=== PATIENT | female | born 1950 | race Caucasian/White ===

== ENCOUNTER 2024-10-07 11:06 | Day surgery (SDC) | payer MEDICARE, BC, SELFPAY ==
[2024-10-07 11:59] VITALS: BMI 24.4
[2024-10-07 12:01] LABS: POC Glucose,Bedside 211 (70-110)
[2024-10-07] MEDS: LACTATED RINGERS 1000ML 1,000 ML 50 ML IV (12:01)
[2024-10-07 12:10] VITALS: BP 130/64; PULSE 66; RESP 18; TEMP 36.7; O2SAT 96
--- NOTE | 2024-10-07 12:20 | P.PNANES_ITS ---
[facility] Disclaimer: The information contained in this section may have been updated after the patient was seen, as this information can be updated by other users. 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, managed as type 2 Surgical History H/O section Family History (Updated 10/07/24 @ 12:09 by Jovani Tinsley RN) Other Family history of Alzheimer disease Social History (Updated 10/07/24 @ 12:10 by Jvoani Tinsley RN) Smoking Status: Never smoker alcohol intake: never substance use type: denies use current occupational status: retired Travel in the last 8 weeks?: None [facility] Anesthesia Checklist Patient Identification Patient Identification: Arm Band Structural Data Admitted From: Home Planned Operative Procedure/s: Colonoscopy Consent for Planned Operative Procedure(s) Verified: Yes Verified Documents: Surgical Consent and History and Physical NPO Status Verified Time NPO: 11:00 (sprite) Additional verifications Anesthesia Reactions: No Airway Assessment Mallampati Score:: Class II C-Spine Mobility Assessed: Yes TMJ Mobility Assessed: Yes Dentition: Good Dentition Neurological Assessment Level of Consciousness: Awake, Alert and Appropriate Anesthesia Plan Anesthesia Risk discussed: Yes Anesthesia Plan: Verified ASA Class: II Anesthesia Type: MAC
--- NOTE | 2024-10-07 13:01 | EXP.HP ---
History of Present Illness *Admission Date: 10/07/24 *Reason for visit:: Personal history of colon polyps *History of present illness: Mrs. Del Cid is a 74-year-old female who is here for screening colonoscopy. She does have a personal history of colon polyps. She had inadequate prep on colonoscopy in December 2023 and I believe that this was done at the [facility] because there is no record. The examination is deemed medically necessary for screening colonoscopy. The patient has been seen, interviewed and examined prior to the procedure by both myself and the anesthesia provider. [facility] Disclaimer: The information contained in this section may have been updated after the patient was seen, as this information can be updated by other users. Medical History (Updated 10/07/24 @ 13:11 by Antoine Arana II, MD) Hypothyroid Diabetes 1.5, managed as type 2 Surgical History H/O section Family History (Updated 10/07/24 @ 12:09 by Jovani Tinsley RN) Other Family history of Alzheimer disease Social History (Updated 10/07/24 @ 12:21 by Colin Brown CRNA) Smoking Status: Never smoker alcohol intake: never substance use type: denies use current occupational status: retired Travel in the last 8 weeks?: None Have you lived/traveled outside [place] in past 30 days?: No Contact w/someone who lives/traveled outside US past 30 days?: No Exposure to someone with infectious disease in past 14 days?: No Do you have a fever (greater than 100.4 F or 38 C)?: No Have you tested positive for COVID-19?: No Exposed to someone with COVID-19 in past 14 days?: No Do you have a sore throat?: No Do you have a cough?: No Do you have any weakness?: No Are you experiencing any nausea/vomitting?: No Do you have any diarrhea?: No Are you experiencing any unusual bleeding?: No Do you have any muscle aches/pain?: No Do you have any abdominal pain?: No Are you experiencing loss of taste or smell?: No Other Medical History Have you received the Pneumonia Vaccine: No Review of Systems Review of Systems Review of systems (narrative): Negative *Cardiovascular Comments: Negative *Gastrointestinal Comments: Negative *Genitourinary Comments: Negative *Musculoskeletal Comments: Negative *Neurologic Comments: Negative Meds Home Medications and Allergies Home Medications ?Medication ?Instructions ?Recorded ?Confirmed ?Type levothyroxine 100 mcg tablet 100 mcg PO DAILY 09/28/24 09/28/24 History aripiprazole 10 mg tablet (Abilify) 10 mg PO DAILY 10/07/24 10/07/24 History atorvastatin 40 mg tablet 40 mg PO DAILY 10/07/24 10/07/24 History bupropion HCl 300 mg 24 hr tablet, 300 mg PO DAILY 10/07/24 10/07/24 History extended release (Wellbutrin XL) cholecalciferol (vitamin D3) 50 50 mcg PO DAILY 10/07/24 10/07/24 History mcg (2,000 unit) capsule (Vitamin D3) donepezil 10 mg tablet (Aricept) 10 mg PO DAILY 10/07/24 10/07/24 History fenofibrate 54 mg tablet 54 mg PO DAILY 10/07/24 10/07/24 History memantine 10 mg tablet 10 mg PO BID 10/07/24 10/07/24 History metformin 500 mg tablet 500 mg PO DAILY 10/07/24 10/07/24 History omega 5-xae-bxl-fish oil 1,200 mg 1 cap PO DAILY 10/07/24 10/07/24 History (144 mg-216 mg) capsule (Fish Oil) omega 9-eoz-jhb-fish oil 1,200 mg 1 cap PO DAILY 10/07/24 10/07/24 History (144 mg-216 mg) capsule (Fish Oil) quetiapine 25 mg tablet 25 mg PO DAILY 10/07/24 10/07/24 History venlafaxine 75 mg tablet 75 mg PO TID 10/07/24 10/07/24 History New Prescriptions to Start Prescriptions: Allergies Allergy/AdvReac Type Severity Reaction Status Date / Time No Known Allergies Allergy Verified 10/07/24 12:01 Exam Data for Last 24 hours Vital signs and Labs for Last 24 Hours: Temp Pulse Resp BP Pulse Ox O2 Del Method 98.0 F 66 18 130/64 96 Room Air 10/07/24 12:10 10/07/24 12:10 10/07/24 12:10 10/07/24 12:10 10/07/24 12:10 10/07/24 12:10 Laboratory Results - last 24 hr 10/07/24 11:50: POC Glucose 211 H I & O for Last 24 hours: Intake & Output 10/04/24 10/05/24 10/06/24 10/07/24 23:59 23:59 23:59 23:59 Weight 125 lb *Routine HEENT Exam Head: Present normocephalic Eye: Present EOMI and PERRL ENT: Present mucous membranes moist *Routine Neck Exam Neck: Present supple *Routine Respiratory Exam Respiratory: Present CTA bilaterally *Routine Cardiovascular Exam Cardiovascular: Present RRR *Routine Abdominal Exam Abdominal: Present soft and normoactive bowel sounds; Absent tenderness *Routine Rectal Exam Rectal:: deferred *Routine Genitalia Exam Genitalia:: deferred *Routine Extremities Exam Extremities: Absent cyanosis, clubbing or edema *Routine Skin Exam Skin: Present warm; Absent rash *Routine Neurological Exam Neurological: Present alert and oriented X3 Assessment and Plan *Assessment and plan (1) Personal history of colon polyps, unspecified: Status: Acute Category: Medical Code(s): Z86.0100 - Personal history of colon polyps, unspecified Plan A/P: 1. Personal history of colon polyps is the preprocedural diagnosis. The patient will be anesthetized/sedated using MAC sedation. The patient has been seen and examined. Cardiac and lung assessment prior to the examination is stable. Proceed with planned surveillance colonoscopy.
--- NOTE | 2024-10-07 13:12 | HMH.PROCNOTE ---
[facility] Procedure Note Date: 10/07/24 Time: 13:28 Procedure Note:: Colonoscopy Procedure Report: Colonoscopy with cold snare polypectomy Endoscopist: Antoine Arana II, MD Referring physician: Teofilo Mcconnell DO, [address] [place] [address] Date of Procedure: October 07, 2024 Equipment: Olympus 190 variable stiffness pediatric colonoscope Sedation: MAC sedation Indication: Mrs. Del Cid is a 74-year-old female who is here for screening colonoscopy. Apparently, she did have a colonoscopy elsewhere in December 2019 for and was poorly prepped. She does have a history of colon polyps. The patient is unable to give thorough history but reports no abdominal pain, weight loss, change in her bowel habits or rectal bleeding. She reports no family history of colon cancer. Procedure: Prior to the procedure, a history and physical exam was performed, and patient's medications and allergies were reviewed. The risks, benefits and alternatives of the sedation and procedure were discussed with the patient. All questions were answered and informed consent was obtained. The patient was brought to the procedure room. Patient identification and proposed procedure were verified by the physician and the nurse. The patient was placed in a left lateral decubitus position and the scope was passed under direct vision. Throughout the procedure, the patient's blood pressure, pulse, and oxygen saturations were monitored continuously. The colonoscopy was accomplished without difficulty. The patient tolerated the procedure well. Findings: On digital rectal examination there was normal rectal tone. There were no external hemorrhoids. The colonoscope was introduced through the anal canal to the rectum and advanced to the cecum. The ileocecal valve and appendiceal orifice were identified. The scope was advanced a short distance into the ileum which appeared grossly normal. The scope was then withdrawn into the colon. There were 6 polyps (cecum x 2 (3 and 3 mm), transverse x 1 (4 mm), descending x 2 (3 and 4 mm) and sigmoid x 1 (4 mm)). These were all removed via cold snare polypectomy. The remaining cecum, ascending and transverse colon and mucosa were grossly normal. There were scattered diverticuli throughout the descending and sigmoid colon (LEFT colon). The rectum itself was normal. Upon retroflexion within the rectum there were 1-2 internal hemorrhoids. The preparation was excellent throughout with [place] Preparation Score of 9. The cecal time was 14 minutes. Impression: 1. Diminutive colonic polyps x 6 2. Left-sided diverticulosis 3. Grade 1-2 internal hemorrhoids Plan: I will follow-up the polyp histology and recommend repeat surveillance colonoscopy again in 3 to 5 years. This will certainly be based upon her health and desire to continue preventive surveillance. I would encourage psyllium fiber supplementation on a maintenance basis.
[2024-10-07 13:30] VITALS: BP 83/50; PULSE 70; RESP 16; TEMP 36.1; O2SAT 94
[2024-10-07 13:40] VITALS: BP 88/55; PULSE 63; RESP 16; TEMP 36.1; O2SAT 93
[2024-10-07 13:50] VITALS: BP 111/60; PULSE 61; RESP 18; TEMP 36.1; O2SAT 95
[2024-10-07 14:00] VITALS: BP 102/70; PULSE 60; RESP 18; TEMP 36.1; O2SAT 96
== END 2024-10-07 14:10 | disposition home or self-care (01) ==
PROVIDERS: PCP Family Medicine; Visit Provider Internal Medicine Gastroenterology
PROC: 0DJD8ZZ Inspection of Lower Intestinal Tract, Via Natural or Artificial Opening Endoscopic (ICD-10-PCS; CPT 45378; principal; 2024-10-07 12:30)
DX: Z12.11 Encounter for screening for malignant neoplasm of colon (principal); D12.5 Benign neoplasm of sigmoid colon; D12.3 Benign neoplasm of transverse colon; D12.0 Benign neoplasm of cecum; D12.4 Benign neoplasm of descending colon; K57.90 Diverticulosis of intestine, part unspecified, without perforation or abscess without bleeding; K64.0 First degree hemorrhoids; K64.1 Second degree hemorrhoids; Z86.0100 Personal history of colon polyps, unspecified; E13.22 Other specified diabetes mellitus with diabetic chronic kidney disease; N18.2 Chronic kidney disease, stage 2 (mild); E03.9 Hypothyroidism, unspecified; Z79.84 Long term (current) use of oral hypoglycemic drugs; Z79.899 Other long term (current) drug therapy
CPT/HCPCS: 45385; 82962; J2003; J2704; J7120